=== PATIENT | male | born 2000 | race Caucasian/White ===

== ENCOUNTER 2020-02-11 13:27 | Emergency (ER) | payer OTHER, SELFPAY ==
--- NOTE | ~2020-02-11 | CT_ITS ---
EXAMINATION: CT abdomen pelvis wo con DATE: 02/11/2020 14:13 INDICATION: Left back pain TECHNIQUE: Computed tomography (CT) of the abdomen and pelvis was performed without intravenous contr ast. The dose-length product (DLP) was 180.09 mGy-cm. Automated exposure control and iterative recons truction technique were employed. COMPARISON: None FINDINGS: The lung bases are clear. The heart size is normal. The liver, spleen, pancreas, gallbladde r, and adrenal glands are normal. The right kidney is unremarkable. There is a 3 mm stone in the prox imal left ureter. No pathologically enlarged abdominal or pelvic lymph nodes are identified. There is no free intraperitoneal gas or evidence of bowel obstruction. The visualized osseous structures are unremarkable. IMPRESSION: 1. 3 mm stone of the proximal left ureter. Reviewed, dictated and finalized at location A. SORTER
[2020-02-11 13:37] VITALS: BP 132/69; PULSE 78; RESP 17; TEMP 35.6; O2SAT 96
[2020-02-11 13:40] VITALS: O2SAT 100
[2020-02-11 13:45] VITALS: O2SAT 99
--- NOTE | 2020-02-11 13:45 | PC.NURSE ---
patient here with LLQ pain for approximately 2 hours. see triage note. no change in patient's condition since triage completed. denies N/V/D. denies urinary symptoms. did drink 3 shots last night at the bar and did smoke marijuana 30 minutes prior to pain starting. uncle at bedside.
--- NOTE | 2020-02-11 13:47 | ED.GENADULT ---
HPI - General Adult General Chief complaint: Abdominal Pain Stated complaint: flank pain Time Seen by Provider: 02/11/20 13:36 Source: patient History of Present Illness HPI narrative: Patient is a 20 y/o female complaining of left back pain starting 1-2 hours ago. He is unable to describe the character of pain, but states that it's severe. There is no alleviating or exacerbating factor. He has no nausea or vomiting. He feels like he can't urinate. However, he has no pain with urination or blood in urine. Related Data Allergies Allergy/AdvReac Type Severity Reaction Status Date / Time No Known Allergies Allergy Unverified 07/26/12 10:53 Review of Systems Constitutional: Constitutional: Denies chills, Denies fever(s), Denies headache(s) and Denies weakness Eyes: Eyes: Denies blurry vision ENT: Denies headache(s) and Denies neck pain Cardiovascular: Cardiovascular: Denies chest pain and Denies dyspnea Respiratory: Respiratory: Denies cough and Denies dyspnea Gastrointestinal: Gastrointestinal: Denies abdominal pain, Denies diarrhea, Denies nausea and Denies vomiting Genitourinary: Genitourinary: Denies hematuria, Denies dysuria, Reports flank pain and Reports urinary hesitancy Musculoskeletal: Musculoskeletal: Reports back pain and Denies neck pain Neurologic: Denies headache(s) and Denies weakness PMFSH Social History Social History Gender identity (if verbalized by the patient): Male Exam Const: General: no acute distress and well developed Orientation/consciousness: oriented to person, oriented to place, oriented to time and patient oriented x3 HENMT: Head: normocephalic Ears: external ears normal General nose exam: Normal external nose present Eyes: General: appearance normal, both eyes and all related structures Conjunctivae: conjunctivae normal Neck: Neck: normal visual inspection and full ROM Chest: Chest palpation & inspection: normal inspection of the chest and no tenderness Resp: Effort & Inspection: normal respiratory effort Auscultation: clear to auscultation bilaterally Cardio: Rate: regular rate Rhythm: regular rhythm GI: GI Palp: No abdominal tenderness and Yes Soft to palpation Skin: General skin exam: normal color and turgor normal Neuro: General: oriented to person, oriented to place, oriented to time and patient oriented x3 Cognition (Neuro): normal cognition Extrem: General: normal to inspection, full ROM and no pedal edema Psych: Appearance: grossly normal Mental Status: mental status grossly normal Affect: normal affect Course Reevaluation(s) Reevaluation #1: Discussed with Dr. Mays, who agrees to follow up. Date: 02/11/20 Time: 16:29 Vital Signs Vital signs: Vital Signs Temperature 35.6 C L 02/11/20 13:37 Pulse Rate 78 02/11/20 13:37 Respiratory Rate 17 02/11/20 13:37 Blood Pressure 132/69 02/11/20 13:37 Pulse Oximetry 96 02/11/20 13:37 Temperature 35.6 C L 02/11/20 13:37 Pulse Rate 78 02/11/20 13:37 Respiratory Rate 17 02/11/20 13:37 Blood Pressure 132/69 02/11/20 13:37 Pulse Oximetry 100 02/11/20 16:19 Medical Decision Making Vital Signs Vital Signs: Vital Signs Temperature 35.6 C L 02/11/20 13:37 Pulse Rate 78 02/11/20 13:37 Respiratory Rate 17 02/11/20 13:37 Blood Pressure 132/69 02/11/20 13:37 Pulse Oximetry 96 02/11/20 13:37 Temperature 35.6 C L 02/11/20 13:37 Pulse Rate 78 02/11/20 13:37 Respiratory Rate 17 02/11/20 13:37 Blood Pressure 132/69 02/11/20 13:37 Pulse Oximetry 100 02/11/20 16:19 Lab Data Result diagrams: 02/11/20 13:50 02/11/20 13:50 Labs: Lab Results 02/11/20 02/11/20 02/11/20 Range/Units 13:50 13:50 15:35 WBC 13.1 H (4.5-10.0) K/mm3 RBC 5.13 (4.6-6.20) M/mm3 Hgb 16.6 (14.0-18.0) g/dL Hct 44.7 (42.0-52.0) % MCV 87.1 (80-100) fl MCH 32.4
[2020-02-11 14:00] LABS: Basophils Percent Auto 0.3 % (0.2-1.2); Eosinophils Absolute Auto 0.1 K/mm3 (0-0.3); Eosinophils Percent Auto 0.4 % (0-4.4); Hematocrit 44.7 % (42.0-52.0); Hemoglobin 16.6 g/dL (14.0-18.0); Immature Granulocyte Absolute 0.06 K/mm3 (0.00-0.031); Immature Granulocyte Percent A 0.5 % (0-0.5); Lymphocytes Absolute Auto 2.85 K/mm3 (0.9-3.2); Lymphocytes Percent Auto 21.8 % (18.3-44.2); Mean Corpuscular HGB Conc 37.1 g/dl (32-36); Mean Corpuscular Hemoglobin 32.4 pg (26-34); Mean Corpuscular Volume 87.1 fl (80-100); Mean Platelet Volume 10.5 fl (7.4-10.4); Monocytes Absolute Auto 0.7 K/mm3 (0.1-0.6); Monocytes Percent Auto 5.1 % (2.6-8.5); Neutrophils Absolute Auto 9.4 K/mm3 (1.3-6.7); Neutrophils Percent Auto 71.9 % (45.5-73.1); Platelet Count Result 253 k/mm3 (150-375); Red Blood Count 5.13 M/mm3 (4.6-6.20); Red Cell Distribution Width 12.9 % (11.5-14.5); White Blood Count 13.1 K/mm3 (4.5-10.0)
[2020-02-11] MEDS: KETOROLAC 30 MG/ML VIAL (*BKC) IV PUSH (14:00)
[2020-02-11 14:12] LABS: Anion Gap 16 mmol/L (8-16); Blood Urea Nitrogen 15 mg/dL (9-20); Calcium 9.8 mg/dL (8.4-10.2); Carbon Dioxide 21 mmol/L (22-30); Chloride 100 mmol/L (98-107); Estimated CRCL calculation 109 ml/min; Estimated Glomerular Filt Rate > 60; Glucose 134 mg/dL (75-110); Potassium 3.6 mmol/L (3.4-5.0); Sodium 137 mmol/L (137-145)
--- NOTE | 2020-02-11 14:25 | PC.NURSE ---
patient in CT now.
--- NOTE | 2020-02-11 15:02 | PC.NURSE ---
back from CT. reminded that we do need a urine specimen. mother now in room.
--- NOTE | 2020-02-11 15:48 | PC.NURSE ---
resting on stretcher. placed back on BP and O2 monitors. mother in room. mother has also had kidney stones before. patient denies needs.
[2020-02-11 15:53] LABS: Add Urine Microscopic? YES; Appearance Urine Cloudy (Clear); Bilirubin Urine Negative (Negative); Blood Urine 3+ (Negative); Color Urine Yellow (Yellow); Glucose Urine UA Negative (Negative); Ketones Urine 1+ mg/dL (Negative); Leukocyte Esterase Ur Negative LEU/UL (Negative); Mucus Urine Heavy /lpf; Nitrate Urine Negative (Negative); Protein Urine 2+ mg/dL (Negative); RBC Urine >75 /hpf (0-2); Specific Grav Ur 1.027 (1.001-1.035); Squamous Epithelial Cell Urine Rare /hpf (Few); Urobilinogen Urine Negative mg/dL (<2.0)
[2020-02-11 16:12] VITALS: O2SAT 93
[2020-02-11 16:19] VITALS: O2SAT 100
== END 2020-02-11 16:47 | disposition home or self-care (01) ==
PROVIDERS: Emergency Medicine; Emergency Provider Emergency Medicine
DX: N20.1 Calculus of ureter (principal)
CPT/HCPCS: 36415; 74176; 80048; 81001; 85025; 87086; 96374; 99284; J1885

== ENCOUNTER 2020-02-15 17:48 | Emergency (ER) | payer OTHER, SELFPAY ==
--- NOTE | 2020-02-15 19:01 | PC.NURSE ---
Patient was called to triage at 1832 and again at 190. There was no answer and patient was not present.
== END 2020-02-15 19:01 | disposition left against medical advice (07) ==
LOC: ANHED 19:07
DX: Z53.21 Procedure and treatment not carried out due to patient leaving prior to being seen by health care provider (principal)
CPT/HCPCS: 99199

== ENCOUNTER 2020-11-06 13:52 | Emergency (ER) | payer BC, SELFPAY ==
--- NOTE | ~2020-11-06 | CT_ITS ---
EXAMINATION: CT facial bones w con EXAM DATE: 11/06/2020 16:14 INDICATION: Left facial swelling. Lump on left side of jaw. TECHNIQUE: Spiral CT of the facial bones was acquired in the axial plane following intravenous inject ion of 75 mL Omnipaque 350. Coronal reformatted images were also reviewed. The dose-length product (DLP) for this examination was 290.42 mGy-cm. The exposure was tailored according to patient size, a nd iterative reconstruction (ASIR) was used as additional dose reduction technique. There is no prio r study for comparison. FINDINGS: There is diffuse swelling left lower aspect of the face, subcutaneous edema. Veins enhance normally, no thrombus, and no focal abscess is identified. Cavity identified in the right upper poste rior molar. There are no displaced acute nasal bone fractures. The mandible, sinuses and orbits are i ntact. The orbits, globes and extraocular muscles are unremarkable. The visualized sinuses and ma stoid air cells are well aerated. IMPRESSION: 1. Left facial swelling without abscess. 2. Right upper posterior molar cavity. Reviewed, dictated and finalized at location B.
[2020-11-06 13:55] VITALS: BP 136/84; PULSE 92; RESP 18; TEMP 36.6; O2SAT 100
[2020-11-06 15:07] LABS: Hematocrit 43.4 % (42.0-52.0); Hemoglobin 14.8 g/dL (14.0-18.0); Mean Corpuscular Hemoglobin 30.1 pg (26-34); Mean Corpuscular Volume 88.4 fl (80-100); Red Blood Count 4.91 M/mm3 (4.6-6.20); White Blood Count 6.2 K/mm3 (4.5-10.0)
[2020-11-06 15:08] LABS: Basophils Absolute Auto 0.1 K/mm3 (0.0-0.1); Basophils Percent Auto 0.8 % (0.2-1.2); Eosinophils Absolute Auto 0.1 K/mm3 (0-0.3); Eosinophils Percent Auto 1.4 % (0-4.4); Immature Granulocyte Absolute 0.02 K/mm3 (0.00-0.031); Immature Granulocyte Percent A 0.3 % (0-0.5); Lymphocytes Absolute Auto 2.22 K/mm3 (0.9-3.2); Lymphocytes Percent Auto 35.6 % (18.3-44.2); Mean Corpuscular HGB Conc 34.1 g/dl (32-36); Mean Platelet Volume 10.3 fl (7.4-10.4); Monocytes Absolute Auto 0.5 K/mm3 (0.1-0.6); Monocytes Percent Auto 7.4 % (2.6-8.5); Neutrophils Absolute Auto 3.4 K/mm3 (1.3-6.7); Neutrophils Percent Auto 54.5 % (45.5-73.1); Platelet Count Result 177 k/mm3 (150-375)
--- NOTE | 2020-11-06 15:10 | ED.DENTAL ---
HPI - Dental/Oral General Chief complaint: Dental/Oral Stated complaint: tooth abscess? Time Seen by Provider: 11/06/20 14:02 Source: patient Mode of arrival: ambulatory Limitations: no limitations History of Present Illness HPI Narrative: This is a 20 year old male that presents to the ER for toothache present x 3 days. Associated with facial swelling. Reports redness and swelling around two lower molar teeth on the left side. He has been taking [place] at home for pain. Denies fever. MD Complaint: tooth pain Location: Tooth # (14, 15) Related Data Allergies Allergy/AdvReac Type Severity Reaction Status Date / Time No Known Allergies Allergy Verified 11/06/20 13:54 Review of Systems Review of Systems: CONSTITUTIONAL: Denies fever ENT: Reports dentalgia All systems reviewed & are unremarkable except as noted in HPI and below PMFSH Past Medical History Medical History (Updated 11/06/20 @ 16:36 by Cecelia Ambrocio PA-C) No active medical problems Social History Social History (Updated 11/06/20 @ 15:13 by Cecelia Ambrocio PA-C) Substance use: never Gender identity (if verbalized by the patient): Male Exam Narrative: GENERAL: Well-appearing, well-nourished, and in no acute distress. HEAD: Normocephalic, atraumatic. EYES: EOMI. ENT: Nares clear, no rhinorrhea or epistaxis. Mucous membranes moist. Oropharynx without tonsillar hypertrophy exudate or other lesions. Teeth #14 and 15 with moderate surrounding edema and mild erythema. No obvious fluctuance. No trismus. Floor of mouth is soft NECK: Supple. No adenopathy or masses. CHEST: Airway patent HEART: Regular rate EXTREMITIES: Normal range of motion. No edema. SKIN: Warm, dry, no rash. NEURO: No focal deficits. Alert and oriented x3. PSYCH: Normal mood and affect Course Vital Signs Vital signs: Vital Signs Temperature 97.9 F 11/06/20 13:55 Pulse Rate 92 11/06/20 13:55 Respiratory Rate 18 11/06/20 13:55 Blood Pressure 136/84 11/06/20 13:55 Pulse Oximetry 100 11/06/20 13:55 Temperature 97.9 F 11/06/20 13:55 Pulse Rate 92 11/06/20 13:55 Respiratory Rate 18 11/06/20 13:55 Blood Pressure 136/84 11/06/20 13:55 Pulse Oximetry 100 11/06/20 13:55 MDM - Dental/Oral MDM Narrative Medical decision making narrative: Patient presents to the ER for dentalgia noted over the last couple of days. He is afebrile and nontoxic appearing. No trismus, floor of mouth is soft. He does have moderate edema about tooth number 14, 15 without definite abscess. CBC and metabolic panel without concerning findings. Inflammatory markers are not elevated. CT scan of the facial bones shows left facial swelling, no evidence of abscess. Patient was started on oral antibiotics and was instructed to follow-up with his dentist. He is stable and felt appropriate for further outpatient evaluation. He was given warnings to return to the ER Lab Data Attestation: I reviewed the patient's lab results. Result diagrams: 11/06/20 14:55 11/06/20 14:55 Labs: Lab Results 11/06/20 11/06/20 Range/Units 14:55 14:55 WBC 6.2 (4.5-10.0) K/mm3 RBC 4.91 (4.6-6.20) M/mm3 Hgb 14.8 (14.0-18.0) g/dL Hct 43.4 (42.0-52.0) % MCV 88.4 (80-100) fl MCH 30.1 (26-34) pg MCHC 34.1 (32-36) g/dl RDW 13.0 (11.5-14.5) % Plt Count 177 (150-375) k/mm3 MPV 10.3 (7.4-10.4) fl Immature Gran % (Auto) 0.3 (0-0.5) % Neut % (Auto) 54.5 (45.5-73.1) % Lymph % (Auto) 35.6 (18.3-44.2) % [place] % (Auto) 7.4 (2.6-8.5) % Eos % (Auto) 1.4 (0-4.4) % Baso % (Auto) 0.8 (0.2-1.2) % Lymph # (Auto) 2.22 (0.9-3.2) K/mm3 [place] # (Auto) 0.5 (0.1-0.6) K/mm3 Eos # (Auto) 0.1 (0-0.3) K/mm3 Baso # (Auto) 0.1 (0.0-0.1) K/mm3 Abs Immat Gran (auto) 0.02 (0.00-0.031) K/mm3 Absolute Neuts (auto) 3.4 (1.3-6.7) K/mm3 Absolute Nucleated RBC 0.0 (0.0-0.012) K/mm3 Nucleated RBC % 0.0 (0.0-0.
[2020-11-06 15:34] LABS: Anion Gap 9 mmol/L (8-16); Blood Urea Nitrogen 13 mg/dL (9-20); Calcium 9.5 mg/dL (8.4-10.2); Carbon Dioxide 26 mmol/L (22-30); Chloride 106 mmol/L (98-107); Estimated CRCL calculation 116 ml/min; Estimated Glomerular Filt Rate > 60; Glucose 89 mg/dL (65-110); Potassium 4.6 mmol/L (3.4-5.0); Sodium 141 mmol/L (137-145)
[2020-11-06 16:34] LABS: CRP 1.5 mg/dL (<1.0)
[2020-11-06 17:15] VITALS: BP 132/80; PULSE 92; RESP 18; O2SAT 100
== END 2020-11-06 17:15 | disposition home or self-care (01) ==
PROVIDERS: Physician Assistant; Emergency Provider Emergency Medicine
DX: K08.89 Other specified disorders of teeth and supporting structures (principal); K02.9 Dental caries, unspecified
CPT/HCPCS: 36415; 70487; 80048; 85025; 85652; 86140; 99284; Q9967

== ENCOUNTER 2022-06-05 11:58 | Emergency (ER) | payer BC, SELFPAY ==
[2022-06-05 12:33] VITALS: BP 130/85; PULSE 100; RESP 16; TEMP 36.3; O2SAT 98
[2022-06-05 12:49] VITALS: BP 130/85; PULSE 100; RESP 16; TEMP 36.3; O2SAT 98
--- NOTE | 2022-06-05 13:02 | ED.URI ---
HPI - URI/Sore Throat General Chief Complaint: Upper Respiratory Infection Stated Complaint: uri Time Seen by Provider: 06/05/22 13:02 Source: patient and RN notes reviewed Mode of arrival: ambulatory Limitations: no limitations History of Present Illness HPI Narrative: 22-year-old male presented for complaint of cough for about 2 weeks with green nasal drainage, sinus congestion and facial pressure. Endorses cough can cause chest pain in mid chest. Denies shortness of breath, wheezing, nausea, vomiting, diarrhea, fevers or chills. Denies sick contacts. Taking [id number] medication without relief. MD elicited complaint: cough Related Data Allergies Allergy/AdvReac Type Severity Reaction Status Date / Time No Known Allergies Allergy Verified 06/05/22 12:16 Review of Systems Review of Systems: CONSTITUTIONAL: Denies malaise, chills, sweats, fever EYES: Denies visual changes, redness, or discharge ENT: Reports rhinorrhea, congestion, sinus pain, otalgia, sore throat CARDIOVASCULAR: Denies chest pain, palpitations, edema RESPIRATORY: Reports cough, post nasal drainage. Denies dyspnea GASTROINTESTINAL: Denies abdominal pain, nausea, vomiting, diarrhea SKIN: Denies rash or itching MUSCULOSKELETAL: Denies myalgia NEUROLOGIC: Denies headache PMFSH Past Medical History Medical History No active medical problems Social History Social History Substance use: never Gender identity (if verbalized by the patient): Male Exam Narrative: GENERAL: well-appearing EYES: PERRLA, conjunctivae clear ENT: Mucous membranes moist. TMs pearly love with dull light reflex bilaterally; no tragal tenderness. Oropharynx erythematous without lesions or exudate, no drooling, no hoarseness, no trismus, uvula midline. No tripod positioning, muffled voice, soft palate or pharyngeal wall bulging NECK: Supple. No lymphadenopathy CHEST: Clear to auscultation, breath sounds equal. No wheezing, rhonchi, rales, or stridor. No respiratory distress, speaks in full sentences. HEART: Regular rate and rhythm. No murmur heard. SKIN: Warm, dry, no rash. NEURO: Alert and oriented x3. PSYCH: Normal mood and affect Course Course Emergency Course: Patient is aware of diagnosis, understands and agrees to treatment plan. Anticipatory guidance given. Patient agrees to follow-up as directed and is aware of reasons to seek care at the emergency department. Portions of this record may have been created with voice recognition software Level of Care: Express Care Visit Vital Signs Vital signs: Vital Signs Temperature 97.3 F L 06/05/22 12:33 Pulse Rate 100 06/05/22 12:33 Respiratory Rate 16 06/05/22 12:33 Blood Pressure 130/85 06/05/22 12:33 Pulse Oximetry 98 06/05/22 12:33 Oxygen Delivery Room Air 06/05/22 12:33 Temperature 97.3 F L 06/05/22 12:49 Pulse Rate 100 06/05/22 12:49 Respiratory Rate 16 06/05/22 12:49 Blood Pressure 130/85 06/05/22 12:49 Pulse Oximetry 98 06/05/22 12:49 Oxygen Delivery Room Air 06/05/22 12:49 reviewed MDM - URI/Sore Throat MDM Narrative Medical decision making narrative: Advised supportive measures and signs/symptoms to go to the ER. Pt is appropriate for outpt treatment and f/u. Differential Diagnosis Differential diagnosis: Likely upper respiratory infection, sinusitis, viral infection, bronchitis and pharyngitis Discharge Plan Discharge Clinical Impression: Upper respiratory infection Patient Disposition: Home, Self-Care Condition: Stable Instructions: Antibiotic Form, Rhinosinusitis (ED) Additional Instructions: Take antibiotic as directed Recommend Flonase spray and Zyrtec (or Claritin/Cony) over the counter Cough syrup may cause drowsiness; avoid driving or take it at night time. Tylenol 1000mg every 8 hours as needed for pain Symptomati
== END 2022-06-05 13:13 | disposition home or self-care (01) ==
PROVIDERS: Emergency Provider Nurse Practitioner Family
DX: J06.9 Acute upper respiratory infection, unspecified (principal)
CPT/HCPCS: 99213; G0463